=== PATIENT | female | born 1955 | race African-American/Black ===

== ENCOUNTER 2016-08-22 15:31 | Emergency (ER) | payer MEDICAID ==
[~2016-08-22] VITALS: Ht 177.8 cm; Wt 146.0 kg
[2016-08-22] MEDS ORDERED: INSU3INS6 SQ (16:35)
[2016-08-22] MEDS ORDERED: COLACE (16:35)
[2016-08-22] MEDS ORDERED: INSLIS SQ (16:35)
[2016-08-22] MEDS ORDERED: ATOR40TA70 PO (16:35)
[2016-08-22] MEDS ORDERED: BUPR200T2 PO (16:35)
[2016-08-22] MEDS ORDERED: QUET25TA PO (16:35)
[2016-08-22] MEDS ORDERED: LISI10TA5 PO (16:35)
[2016-08-22] MEDS ORDERED: INSU3INS6 SUBCUT (16:35)
[2016-08-22] MEDS ORDERED: CIPR2.5D9 OP (16:35)
[2016-08-22] MEDS ORDERED: TETRACAINE 0.5% OPHTH DROPS 4ML LEFTEYE ONE (18:45)
[2016-08-22] MEDS ORDERED: FLUORESCEIN SODIUM 1MG/STRIP LEFTEYE ONE (18:45)
[2016-08-22 21:41] VITALS: BP 169/104
== END 2016-08-22 21:42 | disposition home or self-care (01) ==
LOC: ER 15:31
DX: H10.022 Other mucopurulent conjunctivitis, left eye (principal); H15.9 Unspecified disorder of sclera; E11.9 Type 2 diabetes mellitus without complications; M19.90 Unspecified osteoarthritis, unspecified site; E78.00 Pure hypercholesterolemia, unspecified; F31.9 Bipolar disorder, unspecified; J45.909 Unspecified asthma, uncomplicated; R01.1 Cardiac murmur, unspecified; Z90.710 Acquired absence of both cervix and uterus; Z88.8 Allergy status to other drugs, medicaments and biological substances; Z79.4 Long term (current) use of insulin
CPT/HCPCS: 99282

== ENCOUNTER 2017-05-11 15:11 | Emergency (ER) | payer MEDICAID ==
[~2017-05-11] VITALS: Ht 177.8 cm; Wt 142.0 kg
[~2017-05-11 15:11] MED LIST: ATOR40TA70 PO; BUPR200T2 PO; CIPR2.5D9 OP; CLOP75TA16 PO; COLACE; FURO-152 PO; INSLIS SQ; INSU100I24 SQ; INSU3INS6 SQ; INSU3INS6 SUBCUT; LABE100T PO; QUET200T PO
[2017-05-11 16:10] LABS: BASOPHILS % 0.8 % (0.0-2.0); EOSINOPHILS % 3.9 % (0.0-5.0); HEMATOCRIT. 36.5 % (36.0-48.0); HEMOGLOBIN. 12.3 g/dL (12.0-16.0); LYMPHOCYTES % 34.2 % (20.0-50.0); MEAN CORPUSCULAR VOLUME 83.5 fL (81.0-99.0); MONOCYTES % 8.4 % (2.0-8.0); NEUTROPHILS % 52.7 % (40.0-76.0); PLATELET 328 x1000/uL (130-400); RED BLOOD CELL COUNT 4.38 mill/uL (4.2-5.4); RED CELL DISTRIBUTION WIDTH 14.8 % (11.6-14.6)
[2017-05-11 16:10] LABS: CLARITY URINE CLEAR (CLEAR); COLOR URINE YELLOW (YELLOW); KETONES URINE NEGATIVE (NEGATIVE); LEUKOCYTE ESTERASE URINE NEGATIVE (NEGATIVE); NITRITE URINE NEGATIVE (NEGATIVE); OCCULT BLOOD URINE NEGATIVE (NEGATIVE); PROTEIN URINE 2+ (NEGATIVE); UROBILINOGEN URINE 0.2 E.U./dL (0.2-1.0)
[2017-05-11 16:20] LABS: CHLORIDE 104 mEq/L (98-107)
[2017-05-11 19:55] VITALS: BP 148/88
== END 2017-05-11 20:10 | disposition home or self-care (01) ==
LOC: ER 15:11
DX: R06.02 Shortness of breath (principal); R06.9 Unspecified abnormalities of breathing; R05 Cough; E11.9 Type 2 diabetes mellitus without complications; R07.9 Chest pain, unspecified; I10 Essential (primary) hypertension; R53.1 Weakness; Z79.4 Long term (current) use of insulin; Z90.710 Acquired absence of both cervix and uterus; Z98.51 Tubal ligation status; Z88.8 Allergy status to other drugs, medicaments and biological substances
CPT/HCPCS: 36415; 71045; 80053; 81003; 83880; 84484; 85025; 85610; 93005; 99285; Z7610

== ENCOUNTER 2019-12-05 11:17 | Emergency (ER) | payer MEDICAID, OTHER ==
[~2019-12-05] VITALS: Ht 177.8 cm; Wt 126.0 kg
[~2019-12-05 11:17] MED LIST changes: -CLOP75TA16 PO; +CLOP75TA4 PO; -LABE100T PO; +LABE100T5 PO
[2019-12-05] MEDS ORDERED: KETOROLAC 30MG/ML VIAL IV STA (11:35)
[2019-12-05 11:57] LABS: BASOPHILS % 1.1 % (0.0-2.0); EOSINOPHILS % 4.8 % (0.0-5.0); HEMATOCRIT. 35.9 % (36.0-48.0); HEMOGLOBIN. 11.7 g/dL (12.0-16.0); LYMPHOCYTES % 28.6 % (20.0-50.0); MEAN CORPUSCULAR HEMOGLOBIN 27.2 pg (28.0-32.0); MEAN CORPUSCULAR VOLUME 83.2 fL (81.0-99.0); MEAN PLATELET VOLUME 9.5 fl (7.4-10.4); NEUTROPHILS % 54.5 % (40.0-76.0); PLATELET 215 x1000/uL (130-400); RED BLOOD CELL COUNT 4.31 mill/uL (4.2-5.4); RED CELL DISTRIBUTION WIDTH 15.3 % (11.6-14.6)
[2019-12-05 12:08] LABS: CHLORIDE 102 mEq/L (98-107)
[2019-12-05] MEDS ORDERED: MORPHINE SULFATE 2 MG/ML CPJ (NOT FOR IM USE) IV ONE (15:00)
[2019-12-05 17:00] VITALS: BP 157/72
== END 2019-12-05 17:00 | disposition home or self-care (01) ==
LOC: ER 11:17
DX: G89.29 Other chronic pain (principal); M13.812 Other specified arthritis, left shoulder; M13.862 Other specified arthritis, left knee; M13.861 Other specified arthritis, right knee; E66.01 Morbid (severe) obesity due to excess calories; I10 Essential (primary) hypertension; E11.9 Type 2 diabetes mellitus without complications; Z88.8 Allergy status to other drugs, medicaments and biological substances; Z68.39 Body mass index [BMI] 39.0-39.9, adult
CPT/HCPCS: 36415; 71045; 73030; 73560; 80053; 82962; 85025; 93005; 96374; 96375; 99285; J1885; J2270